=== PATIENT | male | born 1955 | race Caucasian/White ===

== ENCOUNTER 2021-03-18 06:43 | Outpatient (CLI) | payer OTHER, SELFPAY ==
--- NOTE | ~2021-03-18 | MR_ITS ---
EXAMINATION: MR shoulder LT wo con DATE: 03/18/2021 07:52 INDICATION: Left shoulder pain. TECHNIQUE: Magnetic resonance imaging (MRI) of the left shoulder was performed without intravenous co ntrast. Sequences included axial PD-weighted FS FSE, coronal oblique PD-weighted FS FSE and T2-weight ed FS FSE, and sagittal oblique T2-weighted FS FSE and T1-weighted FSE. COMPARISON: None. FINDINGS: Coracoacromial arch: The acromion undersurface is curved in morphology (type II). There is severe acromioclavicular joint osteoarthritis including inferiorly directed osteophytes. There is moderate subacromial/subdeltoid bu rsitis. Rotator cuff: There is severe supraspinatus and infraspinatus tendinopathy. There is an interstitial tear at the di stal attachment of supraspinatus and infraspinatus tendons measuring 11 mm anterior to posterior by 2 mm proximal to distal by 60% tendon thickness. Teres minor tendon is normal. There is severe subscap ularis tendinopathy with distal interstitial tear. There is no asymmetric fatty atrophy of the rotato r cuff muscle bellies. Biceps tendon and glenoid labrum: The biceps tendon is medially displaced into the subscapularis tendon tear. There is a partial tear o f proximal biceps tendon. There is a tear of posterior superior labrum. There is a 6 x 4 mm paralabra l cyst at 10:00. Fluid: There is a moderate-sized glenohumeral joint effusion. Bones/cartilage: There is full-thickness cartilage loss of superior and posterior glenoid. There is near full-thicknes s cartilage loss of humeral head involving the posterior articular surface. IMPRESSION: 1. Partial-thickness rotator cuff tears. 2. Severe glenohumeral joint chondrosis. 3. Partial tear of proximal biceps tendon, which is medially displaced into the subscapularis tendon tear. 4. Severe acromioclavicular joint osteoarthritis. 5. Moderate subacromial/subdeltoid bursitis. 6. Moderate-sized glenohumeral joint effusion. Reviewed, dictated and finalized at location A.
== END 2021-03-18 06:44 | disposition home or self-care (01) ==
PROVIDERS: PCP Internal Medicine; Visit Provider Internal Medicine
DX: S46.212A Strain of muscle, fascia and tendon of other parts of biceps, left arm, initial encounter (principal); M75.112 Incomplete rotator cuff tear or rupture of left shoulder, not specified as traumatic; M19.012 Primary osteoarthritis, left shoulder; M25.412 Effusion, left shoulder; M75.52 Bursitis of left shoulder
CPT/HCPCS: 73221

== ENCOUNTER 2021-06-01 07:52 | Outpatient (CLI) | payer OTHER, SELFPAY ==
--- NOTE | ~2021-06-01 | US_ITS ---
EXAMINATION: US venous doppler LE RT EXAM DATE: 06/01/2021 08:37 INDICATION: Acute right calf pain. TECHNIQUE: Multiple grayscale, color flow and Doppler images of the right lower extremity deep venous system were obtained and reviewed. There is no prior study for comparison. FINDINGS: The right common femoral, femoral and profunda veins demonstrate normal color flow, respira tory variation, augmentation and compressibility. Compressibility, color flow confirmed within the r ight popliteal, posterior tibial, peroneal, and greater saphenous veins. Scanned area of pain lateral right calf region without abnormality demonstrated. IMPRESSION: 1. No right lower extremity deep venous thrombosis. 2. Unremarkable right lateral calf symptomatic region subcutaneous fat and musculature. Reviewed, dictated and finalized at location A. IAL SERVICES COORDINATOR IMPRESSION: 1. No right lower extremity deep venous thrombosis. 2. Unremarkable right lateral calf symptomatic region subcutaneous fat and mus culature.
== END 2021-06-01 07:53 | disposition home or self-care (01) ==
PROVIDERS: PCP Internal Medicine; Visit Provider Internal Medicine
DX: M79.604 Pain in right leg (principal)
CPT/HCPCS: 93971

== ENCOUNTER 2021-07-05 08:27 | Outpatient (RCR) | payer OTHER, SELFPAY ==
[2021-07-05 14:13] VITALS: BP 122/84; PULSE 108; RESP 20; TEMP 36.6; O2SAT 98
[2021-07-05] MEDS: FAMOTIDINE 20 MG TABLET PO (14:17)
[2021-07-05] MEDS: diphenhydrAMINE HCl CAP 25 MG CAPSULE PO (14:17)
[2021-07-05] MEDS: ACETAMINOPHEN 325 MG TABLET 650 MG PO (14:17)
[2021-07-05 15:46] VITALS: BP 132/76
--- NOTE | 2021-07-06 10:54 | PC.NURSE ---
Patient states that he is feeling better today after his monoclonal antibody infusion.
== END 2021-07-05 17:00 ==
LOC: AMCINF 08:27
PROVIDERS: PCP Internal Medicine; Visit Provider Internal Medicine Hematology & Oncology
DX: U07.1 COVID-19 (principal); I10 Essential (primary) hypertension
CPT/HCPCS: A9270; M0245; Q0245